=== PATIENT | male | born 1980 | race Caucasian/White ===

== ENCOUNTER 2022-04-29 12:27 | Emergency (ER) | payer OTHER ==
[2022-04-29 12:49] VITALS: BP 122/76; PULSE 81; RESP 18; TEMP 98.4; BMI 27.2
== END 2022-04-29 14:04 | disposition home or self-care (01) ==
LOC: FER 12:27
DX: M79.645 Pain in left finger(s) (principal)
CPT/HCPCS: 73130-TC-LT-FY; 99284-25

== ENCOUNTER 2022-05-15 09:10 | Day surgery (SDC) | payer OTHER ==
[2022-05-10 11:16] VITALS: BMI 27.6
[2022-05-15] MEDS ORDERED: MIDAZOLAM HCL 2 MG/2 ML SINGLE DOSE VIAL ONE (10:19)
[2022-05-15] MEDS ORDERED: BUPIVACAINE HCL/PF 2.5 MG/ML - 30 ML VIAL IJ ONE (10:34)
[2022-05-15] MEDS ORDERED: ACETAMINOPHEN INJECTION 100 ML IVPB ONE (10:40)
[2022-05-15] MEDS ORDERED: ceFAZolin SODIUM 1 GM VIAL ONE (10:52)
[2022-05-15] MEDS ORDERED: ONDANSETRON 4 MG/2 ML VIAL ONE ×2 (12:18→13:12)
[2022-05-15] MEDS ORDERED: DEXAMETHASONE SOD PHOSPHATE 4 MG/1 ML VIAL ONE (12:18)
[2022-05-15] MEDS ORDERED: KETOROLAC TROMETHAMINE 30 MG/1 ML VIAL ONE (12:18)
[2022-05-15] MEDS ORDERED: ONDANSETRON 4 MG/2 ML VIAL IVPUSH PRN (13:49)
[2022-05-15] MEDS ORDERED: oxyCODONE HCL 5 MG TABLET PO PRN (13:49)
[2022-05-15] MEDS ORDERED: LACTATED RINGERS SOLUTION 1,000 ML IV SCH (14:00)
[2022-05-15 14:43] VITALS: RESP 16
[2022-05-15 15:22] VITALS: PULSE 66; TEMP 98.1
[2022-05-15 16:35] VITALS: BP 128/84
== END 2022-05-15 15:50 | disposition home or self-care (01) ==
LOC: FASU 09:10
PROVIDERS: ATTEND Orthopaedic Surgery Hand Surgery
PROC: 0RQX0ZZ Repair Left Finger Phalangeal Joint, Open Approach (ICD-10-PCS; 2022-05-15)
PROC: 0PSV04Z Reposition Left Finger Phalanx with Internal Fixation Device, Open Approach (ICD-10-PCS; principal; 2022-05-15 11:08)
PROC: 0PUV07Z Supplement Left Finger Phalanx with Autologous Tissue Substitute, Open Approach (ICD-10-PCS; 2022-05-15 11:08)
DX: S62.615A Displaced fracture of proximal phalanx of left ring finger, initial encounter for closed fracture (principal); S63.655A Sprain of metacarpophalangeal joint of left ring finger, initial encounter; M24.445 Recurrent dislocation, left finger; X58.XXXA Exposure to other specified factors, initial encounter; Y93.9 Activity, unspecified; Y92.9 Unspecified place or not applicable
CPT/HCPCS: 94760

== ENCOUNTER 2022-11-27 08:53 | Day surgery (SDC) | payer OTHER ==
[2022-11-19 10:39] VITALS: BMI 28.0
[2022-11-27 09:21] VITALS: RESP 18
[2022-11-27] MEDS ORDERED: MIDAZOLAM HCL 2 MG/2 ML SINGLE DOSE VIAL ONE ×2 (09:28→10:10)
[2022-11-27] MEDS ORDERED: LIDOCAINE HCL 2% (20ML MULTI-DOSE VIAL) ONE (09:56)
[2022-11-27] MEDS ORDERED: oxyCODONE HCL 5 MG TABLET PO PRN ×2 (10:17)
[2022-11-27] MEDS ORDERED: ONDANSETRON 4 MG/2 ML VIAL IVPUSH PRN (10:17)
[2022-11-27] MEDS ORDERED: PROPOFOL 20 ML ONE ×2 (10:22→10:44)
[2022-11-27] MEDS ORDERED: LACTATED RINGERS SOLUTION 1,000 ML IV SCH (10:30)
[2022-11-27 11:48] VITALS: TEMP 97.8
[2022-11-27] MEDS ORDERED: oxyCODONE HCL 5 MG TABLET ONE (11:52)
[2022-11-27 12:16] VITALS: BP 145/89; PULSE 76
== END 2022-11-27 12:15 | disposition home or self-care (01) ==
LOC: FASU 08:53
PROVIDERS: ATTEND Orthopaedic Surgery Hand Surgery
PROC: 0LN80ZZ Release Left Hand Tendon, Open Approach (ICD-10-PCS; 2022-11-27)
PROC: 0RBX0ZZ Excision of Left Finger Phalangeal Joint, Open Approach (ICD-10-PCS; principal; 2022-11-27 10:35)
DX: M24.542 Contracture, left hand (principal)

== ENCOUNTER 2022-12-09 09:35 | Emergency (ER) | payer OTHER ==
[2022-12-09 09:45] VITALS: PULSE 88; RESP 15; TEMP 99; BMI 28.0
[2022-12-09] MEDS ORDERED: predniSONE 20 MG TABLET (UD) PO ONE (09:49)
[2022-12-09] MEDS ORDERED: predniSONE 20 MG TABLET (UD) ONE (09:50)
[2022-12-09 09:59] VITALS: BP 144/102
== END 2022-12-09 10:16 | disposition home or self-care (01) ==
LOC: FER 09:35
DX: L50.0 Allergic urticaria (principal); R21 Rash and other nonspecific skin eruption
CPT/HCPCS: 99283-25

== ENCOUNTER 2023-10-14 00:18 | Emergency (ER) | payer OTHER ==
[2023-10-14 00:29] VITALS: BP 156/100; PULSE 80; RESP 16; TEMP 98.3; BMI 27.3
== END 2023-10-14 01:07 | disposition home or self-care (01) ==
LOC: FER 00:18
PROC: 2W3CX1Z Immobilization of Right Lower Arm using Splint (ICD-10-PCS; principal; 2023-10-14)
DX: S62.330A Displaced fracture of neck of second metacarpal bone, right hand, initial encounter for closed fracture (principal); M79.89 Other specified soft tissue disorders; M79.641 Pain in right hand
CPT/HCPCS: 29125; 73130-TC-RT-FY; 99283-25